=== PATIENT | male | born 1985 | race Two or more races ===

== ENCOUNTER 2024-01-12 21:22 | Emergency (ER) | payer MEDICAID ==
[~2024-01-12] VITALS: Ht 172.7 cm; Wt 112.0 kg
[2024-01-12 21:27] VITALS: TEMP 98
[2024-01-12] MEDS ORDERED: IBUP-1984 PO (23:41)
[2024-01-12] MEDS ORDERED: METH-798 PO (23:41)
[2024-01-13] MEDS: ketorolac tromethamine 15mg/ml inj. IM ONE (00:11)
[2024-01-13 00:33] VITALS: BP 154/94; PULSE 80; RESP 16; O2SAT 97
== END 2024-01-13 00:34 | disposition home or self-care (01) ==
LOC: ER 21:24
DX: M54.50 Low back pain, unspecified (principal)
CPT/HCPCS: 72100; 96372; 99283; J1885